=== PATIENT | male | born 1970 | race Caucasian/White ===

== ENCOUNTER 2024-07-02 11:27 | Inpatient (IN) | payer SELFPAY ==
[2024-07-02] VITALS (17 sets, daily range): BP systolic 166–206; BP diastolic 79–100; PULSE 73–88; RESP 11–25; TEMP 36.5; O2SAT 95–99; BMI 29.9
--- NOTE | 2024-07-02 11:36 | EKG_ITS ---
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
--- NOTE | 2024-07-02 11:37 | DI.CT.S_ITS ---
PROCEDURE: CT HEAD/BRAIN WO CON INDICATIONS: left facial droop TECHNIQUE: Noncontrast 4.5 mm thick angled axial sections acquired from the foramen magnum to the vertex, with coronal and sagittal reformats. For radiation dose reduction, the following was used: automated exposure control, adjustment of mA and/or kV according to patient size. COMPARISON: None. FINDINGS: Image quality: Diagnostic. CSF spaces: Basal cisterns are patent. No extra-axial fluid collections. Ventricles are normal in size and shape. Brain: No midline shift. No intracranial masses or hemorrhage. De La Fuente-white matter interface is normal. Skull and face: Calvarium and visualized facial bones are intact, without suspicious lesions. Sinuses: Visualized sinuses and mastoids are clear. IMPRESSION: No CT evidence of acute intracranial pathology. Dictated by: Abhay Pruitt M.D. on 07/02/2024 at 12:13 Approved by: Abhay Pruitt M.D. on 07/02/2024 at 12:13
--- NOTE | 2024-07-02 11:37 | DI.CT.S_ITS ---
PROCEDURE: CT ANGIO HEAD AND NECK INDICATIONS: left facial droop since tuesday TECHNIQUE: After the administration of intravenous contrast, 1 mm thick sections acquired from the aortic arch through the [place] of [place]. 3-dimensional nswpewh-dfgeilomi-kezeemluvs (MIP) and/or volume rendering reformats were acquired of the central intracranial vasculature and neck separately. For radiation dose reduction, the following was used: automated exposure control, adjustment of mA and/or kV according to patient size. COMPARISON: None. FINDINGS: Image quality: Diagnostic. BRAIN: CSF spaces: Ventricles are normal in size and shape. Basal cisterns are patent. No extra-axial fluid collections. Brain: No significant abnormality of the brain can be seen. Skull and face: Calvarium and facial bones appear intact, without suspicious lesions. Orbits appear normal. Sinuses: Sinuses and mastoids are clear. HEAD CT ANGIOGRAPHY: Anterior circulation: Intracranial internal carotid arteries are normal in size and flow. The flow within the paired anterior cerebral arteries is normal and symmetric. The flow within the middle cerebral arteries is normal and symmetric. The anterior communicating artery is seen. No aneurysms are seen. Posterior circulation: Visualized portions of the vertebral arteries demonstrate normal caliber, and join to form a normal appearing basilar artery. Flow within the posterior cerebral arteries is normal and symmetric. No aneurysms are seen. NECK CT ANGIOGRAPHY: Carotid system: The great vessels demonstrate a conventional anatomy as they arise from the aortic arch. The origins of the common carotid arteries appear patent. The common carotid arteries demonstrate normal caliber and courses. The bifurcation regions are both widely patent. The internal carotid arteries demonstrate normal calibers and courses. Posterior circulation: The origins of the vertebral arteries both appear widely patent. The more superior extracranial portions of both vertebral arteries also demonstrate normal courses and calibers. They join to form a normal appearing basilar artery. Soft tissues: Visualized neck soft tissues demonstrate no suspicious abnormalities. Bones: No suspicious bony lesions. Visualized cervical spine appears normally aligned. IMPRESSION: 1. No significant intracranial arterial abnormality is seen. 2. No significant abnormality is seen within the arteries of the neck. Any quantitative measurements of stenosis were performed using NASCET criteria. Dictated by: Abhay Pruitt M.D. on 07/02/2024 at 12:10 Approved by: Abhay Pruitt M.D. on 07/02/2024 at 12:13
--- NOTE | 2024-07-02 11:39 | EKG_ITS ---
[address] [address] Test Date: 2024-07-02 Pat Name: John Garcia Department: Room: 90B Gender: Male Online Program Coordinator: COMFORT : 1970 Requested By: Order Number: [id number] Reading MD: Axel Flannery MD Measurements Intervals [place] Rate: 75 P: 65 [place]: 198 QRS: -22 QRSD: 100 T: 97 QT: 390 QTc: 435 Interpretive Statements Normal sinus rhythm Possible Left atrial enlargement Incomplete right bundle branch block (old) Left ventricular hypertrophy with repolarization abnormality ( R in aVL , [place] product ) Electronically Signed On 07-03-2024 7:29:59 PDT by Axel Flannery MD
[2024-07-02 11:47] LABS: Add Manual Diff / Slide Review NO; Basophils Absolute Auto 100 /uL (0-100); Basophils Percent Auto 0.5 % (0-2); Eosinophils Absolute Auto 0 /uL (0-450); Eosinophils Percent Auto 0.1 % (2-4); Hematocrit 44.9 % (41-53); Hemoglobin 15.2 g/dL (13.5-17.5); Lymphocytes Absolute Auto 1200 /uL (1100-4500); Mean Corpuscular HGB Conc 33.8 % (30-36); Mean Corpuscular Hemoglobin 30.7 PG (26-34); Mean Corpuscular Volume 90.8 fL (80-100); Monocytes Absolute Auto 800 /uL (0-900); Monocytes Percent Auto 5.6 % (3-14); Neutrophils Absolute Auto 11700 /uL (1500-7000); Neutrophils Percent Auto 84.8 % (50-75); Platelet Count 215 X10^3/uL (150-400); Red Blood Cell Count 4.95 X10^6/uL (4.5-5.9); Red Cell Distribution Width 13.3 % (11.6-14.8); White Blood Cell Count 13.7 X10^3/uL (4.5-11.0)
--- NOTE | 2024-07-02 11:56 | ED.NEUROSD ---
HPI - Neuro Symptoms/Deficit General Chief Complaint: Neuro Symptoms/Deficit Stated Complaint: stroke like symptoms Time Seen by Provider: 07/02/24 11:37 History of Present Illness HPI Narrative: Patient is a 53-year-old male who has no medical history does not go to doctors presents today with dizziness nausea vomiting ongoing for the last 2 days. 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 He woke up suddenly felt sweaty threw up a number of times he was able to go back to sleep during the vomiting and woke up extremely dizzy. He now is having difficulty swallowing he feels like the muscles in motor he is to swallow are difficult any also has a hoarse voice. He also reports left facial numbness reports that this feels like he was at the dentist. He also complains of temperature difference between the right and left side. He says that the right side does not feel hot like left side. He has no significant weakness. No chest pain or palpitations. No abdominal pain. On Anticoagulants: No Related Data Allergies Allergy/AdvReac Type Severity Reaction Status Date / Time codeine AdvReac Verified 07/02/24 11:38 lactase [From [employer]] AdvReac Verified 07/02/24 11:38 Review of Systems Hematologic/Lymphatic On Anticoagulants: No Patient History Social History household members: spouse and children Smoking Status: Never smoker Smoking Status: Never smoker alcohol intake frequency: 0-2 drinks per day Substance Use Type: does not use Exam Initial Vital Signs Initial Vital Signs: Vital Signs Pulse Oximetry 99 07/02/24 11:31 GENERAL: Alert pleasant 53-year-old male and in no acute distress. HEENT: Head atraumatic,EOMI, pupils reactive, no nystagmus face symmetric, moist mucous membranes CARDIOVASCULAR: Regular rate and rhythm without murmurs, rubs or gallops. RESPIRATORY: Breath sounds equal bilaterally, no wheezes rales or rhonchi. ABDOMEN: Soft, nontender. Normoactive bowel sounds all 4 quadrants. No guarding or rebound. EXTREMITIES: Normal range of motion, no clubbing or edema. Neurovascularly intact NEUROLOGICAL: Alert and oriented x4.Normal gait and speech. Cranial nerves II through XII grossly intact. Difficult fgzjmu-pk-rdie with left hand good lgza-je-qqlf, strength equal bilaterally, no dysarthria or aphasia, sensation to lift face decreased compared to right face, no visual changes, no facial droop SKIN: Warm, dry, no laceration, no petechiae, no rashes or lesions. Scores NIH Stroke Scale Level of Conciousness: Alert, keenly responsive Ask month/age: Answers both questions correctly. Open/close eyes, close hand: Performs both tasks correctly Best gaze horizontal: Normal Visual rodriguez: No visual loss Facial palsy: Normal symetrical movement Left arm drift: No drift for full 10 sec Right arm drift: No drift for full 10 sec Left leg drift: No drift for full 5 sec Right leg drift: No drift for full 5 sec Limb ataxia: Present in one limb Sensory on face/arms/legs: Mild to moderate sensory loss, can tell touch Best language: No aphasia, normal Dysarthria: Normal Extinction or inattention: No abnormality Total NIH Stroke scale score: 2 Course Orders Ordered: ED Orders 07/02/24 11:36 Complete Blood Count AUTO DIFF Stat Comprehensive Metabolic Panel Stat Lipase Stat Troponin & CK Cardiac Panel Stat EKG-12 Lead Stat 07/02/24 11:37 CT angio head and neck Stat CT head/brain wo con Stat 07/02/24 11:39 EKG-12 Lead Stat 07/02/24 12:38 MR head/brain wo con Stat Acetaminophen (Acetaminophen 650 Mg Supp) 650 mg [place] Q6HR PRN PRN Reason: Fever Heparin Sodium (Porcine) (Heparin 5,000 Unit/Ml Vial) 5,000 unit SUBCUT BID SOPHIA Dextrose/Sodium Chloride (Dextrose 5%-0.45% Ns) 1,000 mls @ 100 mls/hr IV CONT SOPHIA Naloxone HCl (Naloxone 0.4 Mg/Ml Vial) 0.2 mg IV Q2MIN PRN PRN Reason: Opiate Reversal Ondansetron HCl (Ondansetron 4 Mg/2 Ml Inj) 4 mg IV Q8HR PRN PRN Reason: Nausea And Vomiting Discontinued Medications Aspirin (Aspirin 300 Mg Supp) 300 mg [place] NOW ONE Stop: 07/02/24 15:48 Last Admin: 07/02/24 17:30 Dose: 300 mg Documented By: SPF Sodium Chloride (Normal Saline 0.9%) 500 mls @ 1,000 mls/hr IV BOLUS ONE Stop: 07/02/24 12:36 Last Infusion: 07/02/24 13:15 Dose: Infused Documented By: Admin: 07/02/24 12:16 Dose: 1,000 mls/hr Documented By: CARL Meclizine HCl (Meclizine Hcl 12.5 Mg Tablet) 25 mg PO NOW ONE Stop: 07/02/24 12:08 Last Admin: 07/02/24 12:46 Dose: Not Given Documented By: DEDE Ondansetron HCl (Ondansetron 4 Mg/2 Ml Inj) 4 mg IV NOW ONE Stop: 07/02/24 12:08 Last Admin: 07/02/24 12:16 Dose: 4 mg Documented By: CARL Vital Signs Vital signs: Vital Signs - 8 hr 07/02/24 11:31 07/02/24 11:32 07/02/24 11:32 Temperature Pulse Rate 88 Respiratory Rate Blood Pressure 188/88 H Pulse Oximetry 99 99 Oxygen Delivery Method 07/02/24 11:39 07/02/24 11:55 07/02/24 11:55 Temperature 97.7 F Pulse Rate 82 79 Respiratory Rate 16 21 Blood Pressure 188/88 H 170/85 H Pulse Oximetry 98 97 Oxygen Delivery Method Room Air 07/02/24 12:00 07/02/24 12:00 07/02/24 12:30 Temperature Pulse Rate 88 Respiratory Rate 22 Blood Pressure 171/90 H 178/81 H Pulse Oximetry 98 Oxygen Delivery Method 07/02/24 12:30 07/02/24 13:00 07/02/24 13:00 Temperature Pulse Rate 77 79 Respiratory Rate 18 13 Blood Pressure 174/83 H Pulse Oximetry 96 97 Oxygen Delivery Method Room Air Room Air 07/02/24 13:30 07/02/24 13:30 07/02/24 14:32 Temperature Pulse Rate 77 Respiratory Rate 12 Blood Pressure 166/79 H 206/100 H Pulse Oximetry 98 Oxygen Delivery Method 07/02/24 14:32 07/02/24 14:42 07/02/24 14:42 Temperature Pulse Rate 75 80 Respiratory Rate 25 H 14 Blood Pressure 188/96 H Pulse Oximetry 95 97 Oxygen Delivery Method 07/02/24 15:00 07/02/24 15:00 07/02/24 15:30 Temperature Pulse Rate 77 73 Respiratory Rate 11 L 11 L Blood Pressure 199/99 H Pulse Oximetry 98 98 Oxygen Delivery Method Room Air 07/02/24 15:30 10/07/24 16:00 07/02/24 16:00 Temperature Pulse Rate 74 Respiratory Rate Blood Pressure 187/96 H 192/100 H Pulse Oximetry 98 Oxygen Delivery Method 07/02/24 16:30 07/02/24 16:30 07/02/24 17:00 Temperature Pulse Rate 74 Respiratory Rate 12 Blood Pressure 192/96 H 184/92 H Pulse Oximetry 97 Oxygen Delivery Method 07/02/24 17:00 Temperature Pulse Rate 75 Respiratory Rate 13 Blood Pressure Pulse Oximetry 97 Oxygen Delivery Method Room Air MDM - Neuro Symptoms/Deficit Lab Data 07/02/24 11:36 07/02/24 11:36 Labs: Lab Results 07/02/24 Range/Units 11:36 WBC 13.7 H (4.5-11.0) X10^3/uL RBC 4.95 (4.5-5.9) X10^6/uL Hgb 15.2 (13.5-17.5) g/dL Hct 44.9 (41-53) % MCV 90.8 (80-100) fL MCH 30.7 (26-34) PG MCHC 33.8 (30-36) % RDW 13.3 (11.6-14.8) % Plt Count 215 (150-400) X10^3/uL Neut % (Auto) 84.8 H (50-75) % Lymph % (Auto) 9.0 L (25-40) % [place] % (Auto) 5.6 (3-14) % Eos % (Auto) 0.1 L (2-4) % Baso % (Auto) 0.5 (0-2) % Neut # (Auto) 51251 H (0662-7494) /uL Lymph # (Auto) 1200 (2657-3779) /uL [place] # (Auto) 800 (0-900) /uL Eos # (Auto) 0 (0-450) /uL Baso # (Auto) 100 (0-100) /uL Sodium 138 (137-145) mmol/L Potassium 3.6 (3.4-5.1) mmol/L Chloride 101 (98-107) mmol/L Carbon Dioxide 28 (22-32) mmol/L BUN 18 (9-20) mg/dL Creatinine 1.06 (0.66-1.25) mg/dL Estimated GFR > 60 (>60) mL/min BUN/Creatinine Ratio 17.0 (6-22) Glucose 138 H (70-100) mg/dL Calcium 9.5 (8.4-10.2) mg/dL Total Bilirubin 0.9 (0.2-1.3) mg/dL AST 36 (17-59) IU/L ALT 32 (<50) IU/L Alkaline Phosphatase 121 (38-126) U/L Total Creatine Kinase 164 (55-170) U/L Troponin I < 0.012 (0.01-0.034) ng/mL Total Protein 7.7 (6.3-8.2) g/dL Albumin 4.6 (3.5-5.0) g/dL Globulin 3.1 (1.7-4.1) g/dL Albumin/Globulin Ratio 1.5 (1.0-2.8) Lipase 53 (23-300) U/L Imaging Data CT scan - head: Radiologist's Impression: PROCEDURE: CT HEAD/BRAIN WO CON INDICATIONS: left facial droop TECHNIQUE: Noncontrast 4.5 mm thick angled axial sections acquired from the foramen magnum to the vertex, with coronal and sagittal reformats. For radiation dose reduction, the following was used: automated exposure control, adjustment of mA and/or kV according to patient size. COMPARISON: None. FINDINGS: Image quality: Diagnostic. CSF spaces: Basal cisterns are patent. No extra-axial fluid collections. Ventricles are normal in size and shape. Brain: No midline shift. No intracranial masses or hemorrhage. [place]-white matter interface is normal. Skull and face: Calvarium and visualized facial bones are intact, without suspicious lesions. Sinuses: Visualized sinuses and mastoids are clear. IMPRESSION: No CT evidence of acute intracranial pathology. Dictated by: Abhay Pruitt M.D. on 07/02/2024 at 12:13 CTA - brain/neck: Radiologist's Impression: ADDENDUMThis report includes an Addendum and supersedes previous reports for this exam. PROCEDURE: CT ANGIO HEAD AND NECK INDICATIONS: left facial droop since tuesday TECHNIQUE: After the administration of intravenous contrast, 1 mm thick sections acquired from the aortic arch through the [place] of [place]. 3-dimensional worisoo-baqdedpnn-krrlcjcyds (MIP) and/or volume rendering reformats were acquired of the central intracranial vasculature and neck separately. For radiation dose reduction, the following was used: automated exposure control, adjustment of mA and/or kV according to patient size. COMPARISON: None. FINDINGS: Image quality: Diagnostic. BRAIN: CSF spaces: Ventricles are normal in size and shape. Basal cisterns are patent. No extra-axial fluid collections. Brain: No significant abnormality of the brain can be seen. Skull and face: Calvarium and facial bones appear intact, without suspicious lesions. Orbits appear normal. Sinuses: Sinuses and mastoids are clear. HEAD CT ANGIOGRAPHY: Anterior circulation: Intracranial internal carotid arteries are normal in size and flow. The flow within the paired anterior cerebral arteries is normal and symmetric. The flow within the middle cerebral arteries is normal and symmetric. The anterior communicating artery is seen. No aneurysms are seen. Posterior circulation: Visualized portions of the vertebral arteries demonstrate normal caliber, and join to form a normal appearing basilar artery. Flow within the posterior cerebral arteries is normal and symmetric. No aneurysms are seen. NECK CT ANGIOGRAPHY: Carotid system: The great vessels demonstrate a conventional anatomy as they arise from the aortic arch. The origins of the common carotid arteries appear patent. The common carotid arteries demonstrate normal caliber and courses. The bifurcation regions are both widely patent. The internal carotid arteries demonstrate normal calibers and courses. Posterior circulation: The origins of the vertebral arteries both appear widely patent. The more superior extracranial portions of both vertebral arteries also demonstrate normal courses and calibers. They join to form a normal appearing basilar artery. Soft tissues: Visualized neck soft tissues demonstrate no suspicious abnormalities. Bones: No suspicious bony lesions. Visualized cervical spine appears normally aligned. IMPRESSION: 1. No significant intracranial arterial abnormality is seen. 2. No significant abnormality is seen within the arteries of the neck. Any quantitative measurements of stenosis were performed using NASCET criteria. Dictated by: Abhay Pruitt M.D. on 07/02/2024 at 12:10 Approved by: Abhay Pruitt M.D. on 07/02/2024 at 12:13 ADDENDUM: Upon further evaluation, distal intracranial portion of left vertebral artery is not well visualized with likely retrograde filling of most left vertebral artery from the right side and basilar artery. Finding is concerning for occlusion involving distal intracranial portion of left vertebral artery best seen on series 3, image 146 and series 2, image 138. Dictated by: Abhay Pruitt M.D. on 07/02/2024 at 15:31 MR Brain: Radiologist's Impression: PROCEDURE: MR HEAD/BRAIN WO CON INDICATIONS: facial numbness vomiting difficulty swallowing TECHNIQUE: Noncontrast axial T1 spin echo, axial T2 fast spin echo, sagittal and axial FLAIR, coronal T2 fast spin echo, axial gradient echo, axial diffusion and ADC through the brain. COMPARISON: [facility], CT, CT ANGIO HEAD AND NECK, 07/02/2024, 11:45. FINDINGS: Image quality: Excellent. CSF Spaces: Basal cisterns are patent. No extra-axial fluid collections. Ventricles are normal in size and shape. Brain: No intracranial masses or hemorrhage. [place]/white matter interface is normal. Brainstem appears normal. Diffusion-weighted images demonstrate focal area of restricted diffusion involving left posterior lateral marquita suggestive of acute pointing infarction. No other area of restricted diffusion is seen. No chronic ischemic insults. Normal intravascular flow voids are present. Skull and face: Calvarium has normal marrow signal. Orbits appear normal. Sinuses: Retention cysts are seen in bilateral maxillary sinuses. IMPRESSION: 1. Small acute infarction involving left posterior marquita. 2. No evidence of acute intracranial bleed, midline shift or mass effect. 3. Retention cysts are seen in bilateral maxillary sinuses. Dictated by: Abhay Pruitt M.D. on 07/02/2024 at 15:26 Approved by: Abhay Pruitt M.D. on 07/02/2024 at 15:29 ECG Data Attestation: I personally reviewed and interpreted this ECG as follows: Prior ECG tracings: not available for review Interpretation: Normal sinus rhythm rate 84 [place] interval 74 QRS 104 QTC 406 incomplete right bundle-branch block no priors to compare [facility] Narrative Medical decision making narrative: [facility] CC: Nausea vomiting dizziness left facial numbness Complicating co-morbidities: Does not go to providers Medical records reviewed: None Differential considered: Vertigo posterior stroke CVA Exam documented above, pertinent findings include: Numbness left face ataxia with left arm decreased temperature sensation on the right side NIH stroke scale 2 Lab Test results independently reviewed as above. Pertinent findings: WBC is 13.7 hemoglobin 15.2 hematocrit 44.9 platelets 215 Independently reviewed EKG as above no ischemia Imaging studies independently reviewed: CT head and CT angio do not show any intracranial hemorrhage or large vessel occlusion MR brain shows small acute infarct of the left posterior marquita Consultations: [id number] Dr. Miller request neurology consult but then will happily accept Dr. Cerna Neurology reviewed imaging, recommends loading plavix 300mg then 75mg for 21 days, then daily asa 81mg forever Need statin bp control,Bubble study and outpatient 30day heart monitor Treatments: Aspirin rectally Re-evaluations: Patient really having difficulty swallowing did not pass his swallow test. I do not feel comfortable giving Plavix 300 mg orally Has intermittently been dizzy been feeling okay no longer feeling nauseous Discussion: Patient 53-year-old male presents today with dizziness left facial numbness on examined have some left and ataxia also complains of some temperature differences between right and left. He is found to have a small left posterior marquita CVA. Most concerning is some difficulty swallowing unclear if this is related to stroke versus other but presumed stroke. Neurology has been consulted recommendations are as above Discussion with patient and in regards to admission needing further studies further medications and physical therapy. Recommended admission to the hospital which they agreed to Discharge Plan Departure Patient Disposition: Admitted As Inpatient Clinical Impression: Cerebrovascular accident Admit Date/Time: 07/02/24 17:05 Admit Provider: Yao Miller
[2024-07-02 12:04] LABS: Alanine Aminotransferase 32 IU/L (<50); Albumin 4.6 g/dL (3.5-5.0); Albumin Globulin Ratio 1.5 (1.0-2.8); Alkaline Phosphatase 121 U/L (38-126); Aspartate Aminotransferase 36 IU/L (17-59); Bilirubin Total 0.9 mg/dL (0.2-1.3); Blood Urea Nitrogen 18 mg/dL (9-20); Calcium 9.5 mg/dL (8.4-10.2); Carbon Dioxide 28 mmol/L (22-32); Chloride 101 mmol/L (98-107); Creatine Kinase 164 U/L (55-170); Estimated Glomerular Filt Rate > 60 mL/min (>60); Globulin 3.1 g/dL (1.7-4.1); Glucose 138 mg/dL (70-100); HEMOLYSIS < 15 (0-50); Lipase 53 U/L (23-300); Potassium 3.6 mmol/L (3.4-5.1); Sodium 138 mmol/L (137-145); Total Protein 7.7 g/dL (6.3-8.2)
[2024-07-02 12:16] LABS: Troponin I < 0.012 ng/mL (0.01-0.034)
[2024-07-02] MEDS: SODIUM CHLORIDE 0.9% 500 ML 1000 ML IV (12:16)
[2024-07-02] MEDS: ONDANSETRON 4 MG/2 ML INJ IV (12:16)
--- NOTE | 2024-07-02 12:20 | PC.NURSE ---
Pt failed swallow eval having difficulty swallowing a teaspoon of water. Pt attempted to swallow twice and began to hiccup. Provider notified. Pt placed NPO and PO medications cancelled.
--- NOTE | 2024-07-02 12:38 | DI.MRI.S_ITS ---
PROCEDURE: MR HEAD/BRAIN WO CON INDICATIONS: facial numbness vomiting difficulty swallowing TECHNIQUE: Noncontrast axial T1 spin echo, axial T2 fast spin echo, sagittal and axial FLAIR, coronal T2 fast spin echo, axial gradient echo, axial diffusion and ADC through the brain. COMPARISON: [facility], CT, CT ANGIO HEAD AND NECK, 07/02/2024, 11:45. FINDINGS: Image quality: Excellent. CSF Spaces: Basal cisterns are patent. No extra-axial fluid collections. Ventricles are normal in size and shape. Brain: No intracranial masses or hemorrhage. [place]/white matter interface is normal. Brainstem appears normal. Diffusion-weighted images demonstrate focal area of restricted diffusion involving left posterior lateral marquita suggestive of acute pointing infarction. No other area of restricted diffusion is seen. No chronic ischemic insults. Normal intravascular flow voids are present. Skull and face: Calvarium has normal marrow signal. Orbits appear normal. Sinuses: Retention cysts are seen in bilateral maxillary sinuses. IMPRESSION: 1. Small acute infarction involving left posterior marquita. 2. No evidence of acute intracranial bleed, midline shift or mass effect. 3. Retention cysts are seen in bilateral maxillary sinuses. Dictated by: Abhay Pruitt M.D. on 07/02/2024 at 15:26 Approved by: Abhay Pruitt M.D. on 07/02/2024 at 15:29
--- NOTE | 2024-07-02 17:10 | P.HP_ITS ---
History of Present Illness History of Present Illness Date Patient Seen: 07/02/24 Chief complaint: stroke like symptoms Narrative: Patient was a 53-year-old male with no past history. He was not really sought medical attention over the years in his had some isolated possible high blood pressure readings. He denies a history of stroke or hyperlipidemia although this is not been checked. Does not smoke and does not have a strong family history of stroke. He was hiking and camping on [facility] on Tuesday when he woke up he felt abnormal. He would nausea and some dizziness. He then noticed a droopy left eye, gravelly speech, numbness of his left face and the inside of his left mouth as well as intermittent episodes of vertigo which made it hard to walk. Ultimately he needed assistance getting out of the area with the help of law enforcement. He ultimately presented to the hospital today about 32 hours after his initial symptoms upon awakening Tuesday. He was found here to have abnormal speech and admitted to some difficulty swallowing. He denied any weakness of arms or legs but notes that he was numb on the left side of his face but not his arms or legs. He also took a shower and notes that his cold and hot sensation are absent on the right entire side of his body. Imaging revealed a marquita infarct in the left. There was no hemorrhage. Denies history of TIA, or other neurologic issues. [facility] Social History household members: spouse and children Smoking Status: Never smoker Meds Home Medications and Allergies Allergies Allergy/AdvReac Type Severity Reaction Status Date / Time codeine AdvReac Verified 07/02/24 11:38 lactase [From Dairy Aid] AdvReac Verified 07/02/24 11:38 Review of Systems Review of Systems Narrative: All else reviewed and otherwise unremarkable except as noted in the history and physical. Exam Vital Signs (past 8 hours): - 07/02/24 11:31 07/02/24 11:32 07/02/24 11:32 Temperature Pulse Rate 88 Respiratory Rate Blood Pressure 188/88 H Pulse Oximetry 99 99 Oxygen Delivery Method 07/02/24 11:39 07/02/24 11:55 07/02/24 11:55 Temperature 97.7 F Pulse Rate 82 79 Respiratory Rate 16 21 Blood Pressure 188/88 H 170/85 H Pulse Oximetry 98 97 Oxygen Delivery Method Room Air 07/02/24 12:00 07/02/24 12:00 07/02/24 12:30 Temperature Pulse Rate 88 Respiratory Rate 22 Blood Pressure 171/90 H 178/81 H Pulse Oximetry 98 Oxygen Delivery Method 07/02/24 12:30 07/02/24 13:00 07/02/24 13:00 Temperature Pulse Rate 77 79 Respiratory Rate 18 13 Blood Pressure 174/83 H Pulse Oximetry 96 97 Oxygen Delivery Method Room Air Room Air 07/02/24 13:30 07/02/24 13:30 07/02/24 14:32 Temperature Pulse Rate 77 Respiratory Rate 12 Blood Pressure 166/79 H 206/100 H Pulse Oximetry 98 Oxygen Delivery Method 07/02/24 14:32 07/02/24 14:42 07/02/24 14:42 Temperature Pulse Rate 75 80 Respiratory Rate 25 H 14 Blood Pressure 188/96 H Pulse Oximetry 95 97 Oxygen Delivery Method 07/02/24 15:00 07/02/24 15:00 07/02/24 15:30 Temperature Pulse Rate 77 73 Respiratory Rate 11 L 11 L Blood Pressure 199/99 H Pulse Oximetry 98 98 Oxygen Delivery Method Room Air 07/02/24 15:30 07/02/24 16:00 07/02/24 16:00 Temperature Pulse Rate 74 Respiratory Rate Blood Pressure 187/96 H 192/100 H Pulse Oximetry 98 Oxygen Delivery Method Oxygen Delivery Method Room Air Narrative Exam Narrative: NAD, alert and oriented, fluent speech, calm. Normocephalic skull, EOMI, anicteric sclera, symmetric pupils. Oropharynx unremarkable, no droop. Neck supple, midline trachea, no adenopathy. Lungs clear, normal rate and effort. Heart regular, no murmur gallop or rub. Abdomen is soft, non distended and non tender. Extremities are free of edema. Skin is free of rash or lesions. Joints are not swollen or deformed. Judgment appears to be normal. Neuro: Cranial nerves are intact other than he does have a mild weakness as have his left upper lid and decreased sensation to touch on the left side of his entire face. Motor strength is normal in arms and legs. He does have gradually speech. He also has normal EOMI with no diplopia. He does have slightly slow rapid alternating movement maneuvers in the left arm and heel to sanchez on the left leg. His cerebellum was unremarkable on imaging. Objective ECG Impression: Normal sinus rhythm Possible Left atrial enlargement Incomplete right bundle branch block Minimal voltage criteria for LVH, may be normal variant ( [place]ma product ) Nonspecific ST and T wave abnormality NO PRIOR TRACING Imaging Multiple studies:: Radiologist's impression: Brain MRI: 1. Small acute infarction involving left posterior marquita. 2. No evidence of acute intracranial bleed, midline shift or mass effect. 3. Retention cysts are seen in bilateral maxillary sinuses. Head/Neck CTA: 1. No significant intracranial arterial abnormality is seen. 2. No significant abnormality is seen within the arteries of the neck. Brain CT: No CT evidence of acute intracranial pathology. Labs 07/02/24 11:36 07/02/24 11:36 Labs: Laboratory Results - last 24 hr 07/02/24 11:36 WBC 13.7 H RBC 4.95 Hgb 15.2 Hct 44.9 MCV 90.8 MCH 30.7 MCHC 33.8 RDW 13.3 Plt Count 215 Neut % (Auto) 84.8 H Lymph % (Auto) 9.0 L [place] % (Auto) 5.6 Eos % (Auto) 0.1 L Baso % (Auto) 0.5 Neut # (Auto) 32437 H Lymph # (Auto) 1200 [place] # (Auto) 800 Eos # (Auto) 0 Baso # (Auto) 100 Sodium 138 Potassium 3.6 Chloride 101 Carbon Dioxide 28 BUN 18 Creatinine 1.06 Estimated GFR > 60 BUN/Creatinine Ratio 17.0 Glucose 138 H Calcium 9.5 Total Bilirubin 0.9 AST 36 ALT 32 Alkaline Phosphatase 121 Total Creatine Kinase 164 Troponin I < 0.012 Total Protein 7.7 Albumin 4.6 Globulin 3.1 Albumin/Globulin Ratio 1.5 Lipase 53 Assessment & Plan Assessment & Plan narrative: 1. Acute marquita CVA, present on admission and active. 2. Vertigo and abnormal rapid alternating movements on exam, present on admission and active. 3. Possible chronic untreated hypertension, we will be evaluated. Plan: -dual antiplatelet therapy. He was given a Plavix load in the ED. -high dose statin -speech evaluation, PT, and OT evaluations. -swallow evaluation, he has been drinking fluids and blenderized shakes without choking for the last day and a half. -permissive hypertension. Inpatient status, anticipate 2 midnight hospital stay. Full resuscitation. TRACIE is 07/04. Time-Based Coding :: [TOTAL MINUTES] spent with patient and on the chart (including review of chart, obtaining history, exam, reviewing outside data, placing orders, documenting exam and treatment plan, and counseling patient) on [DATE]. Quality MIPS - Admit I confirm the patient?s Advance Care Plan is present, Code status is documented, Surrogate decision maker is in patient?s record [If Yes, STOP here]: Yes MIPS - Meds 'Current medications' to include all prescriptions, [id number] products, herbals, cannabis/cannabidiol products, and vitamin/mineral/dietary (nutritional) supplements. I have utilized all available resources to obtain, update, or review the patient?s current medications. [If Yes, STOP here]: Yes
[2024-07-02] MEDS: ASPIRIN 300 MG SUPP PR (17:30)
--- NOTE | 2024-07-02 18:18 | CM.DANOTE ---
ED TREE FELLER OPERATOR Assessment Note: Pt is a 53yo male, resident of [place], is admitted for CVA. Pt lives in a house with his family (spouse, two teenage children, dog and cat) in [place]. Patient does not have a primary care provider and does not have active medical insurance. Reviewed chart and team rounds for pt's medical status and initial discharge needs. ED TREE FELLER OPERATOR met w/patient at bedside; introduced self and role. Patient was found in bed, alert and oriented, cooperative with assessment. Present in the room is patient's , Qiana. Pt confirmed living situation and good support in family. Pt expressed preference in returning home and some anxiety around medical bills due to patient's lack of medical insurance. ED TREE FELLER OPERATOR provided patient with Medicaid application and reviewed process with patient and . Patient appreciative of application to review and complete. Plan: Patient to be admitted for continued observation and treatment of CVA symptoms. CM team will follow closely for coordination of discharge plans. JEFFERY De Leon Discharge Planning/Care Management CM Discharge Assessment Start: 07/02/24 18:16 Freq: Status: Active Protocol: Document 07/02/24 18:16 MW (Rec: 07/02/24 18:18 MW [id number]) Discharge Planning Assessment Assigned Hardware Engineering Manager JEANNE Akers DPOA/Assigned Designee Name Qiana Garcia, Spouse Contact Information [phone] Advance Directives? No History Provided By Patient,Family Member,Medical Record Expected Length of Stay 2 Has Patient been admitted in last 30 No days? Prior Living Arrangements House Household Members spouse,children Comment Children - 14yo and 17yo Type of transporation used prior to Drives own vehicle admit Independent with ADL's Yes Is patient alert and oriented? Yes Caregiver for Another Yes: Children, with support of Comment Pending amubulation status and medical work up, preference to return home with family. Please Provide Date Initial DC 07/02/24 Assessment Was Performed Next Review Type Continued Stay Review
[2024-07-02] MEDS: DEXTROSE 5%-0.45% NS 1,000 ML 100 ML IV (19:00)
[2024-07-02] MEDS: HEPARIN 5,000 UNIT/ML VIAL 5000 UNIT SUBCUT (21:16)
[2024-07-03] VITALS: BP 157/93; PULSE 75; RESP 16; TEMP 36.1; O2SAT 97
[2024-07-03] MEDS: DEXTROSE 5%-0.45% NS 1,000 ML 100 ML IV (03:08)
[2024-07-03 04:00] VITALS: BP 158/92; PULSE 60; RESP 16; TEMP 35.8; O2SAT 99
[2024-07-03 06:25] LABS: Add Manual Diff / Slide Review NO; Basophils Absolute Auto 100 /uL (0-100); Basophils Percent Auto 0.7 % (0-2); Eosinophils Absolute Auto 100 /uL (0-450); Eosinophils Percent Auto 0.7 % (2-4); Hematocrit 41.5 % (41-53); Hemoglobin 14.2 g/dL (13.5-17.5); Lymphocytes Absolute Auto 2100 /uL (1100-4500); Mean Corpuscular HGB Conc 34.2 % (30-36); Mean Corpuscular Hemoglobin 30.8 PG (26-34); Mean Corpuscular Volume 90.3 fL (80-100); Monocytes Absolute Auto 700 /uL (0-900); Monocytes Percent Auto 7.7 % (3-14); Neutrophils Absolute Auto 6500 /uL (1500-7000); Neutrophils Percent Auto 68.9 % (50-75); Platelet Count 181 X10^3/uL (150-400); Red Cell Distribution Width 13.4 % (11.6-14.8); White Blood Cell Count 9.4 X10^3/uL (4.5-11.0)
[2024-07-03 06:39] LABS: BUN Creatinine Ratio 17.7 (6-22); Blood Urea Nitrogen 14 mg/dL (9-20); Calcium 8.8 mg/dL (8.4-10.2); Carbon Dioxide 25 mmol/L (22-32); Chloride 107 mmol/L (98-107); Estimated Glomerular Filt Rate > 60 mL/min (>60); Glucose 130 mg/dL (70-100); HEMOLYSIS < 15 (0-50); Potassium 3.4 mmol/L (3.4-5.1); Sodium 139 mmol/L (137-145)
--- NOTE | 2024-07-03 06:52 | PC.NURSE ---
Pt stated when I watch TV I have double vision NIH-2 Pt states that it was better throughout the day yesterday, but it now is the same as it was when i first came to the hospital Will continue to monitor, partner at bedside.
--- NOTE | 2024-07-03 07:33 | PM.PN.1 ---
Subjective Subjective Interval history: 53 year old male admitted with subacute stroke. S: He was slightly better today with less numbness in his left side of his mouth and slightly clear speech. No motor weakness of arms and legs. No headache. He was drinking liquids without choking last night. Exam Vital Signs (past 8 hours): - 07/03/24 00:00 07/03/24 04:00 Temperature 96.9 F L 96.5 F L Pulse Rate 75 60 Respiratory Rate 16 16 Blood Pressure 157/93 H 158/92 H Pulse Oximetry 97 99 Oxygen Flow Rate 0 0 Oxygen Delivery Method Room Air Oxygen Flow Rate 0 Narrative Exam Narrative: NAD, alert and oriented. Fluent speech. Lungs are clear, normal rate and effort. Heart is regular, no murmur gallop or rub. Abdomen is soft, non distended. Extremities are free of edema. Improved left-sided rapid alternating movements and heel to sanchez. Mild ptosis of left eye, EOMI. Left side of face numb over the cheek and chin. Gravelly speech. Objective ECG Impression: Impression: Normal sinus rhythm Possible Left atrial enlargement Incomplete right bundle branch block Minimal voltage criteria for LVH, may be normal variant ( [place] product ) Nonspecific ST and T wave abnormality NO PRIOR TRACING Imaging Multiple studies:: Radiologist's impression: Brain MRI: 1. Small acute infarction involving left posterior marquita. 2. No evidence of acute intracranial bleed, midline shift or mass effect. 3. Retention cysts are seen in bilateral maxillary sinuses. Head/Neck CTA: 1. No significant intracranial arterial abnormality is seen. 2. No significant abnormality is seen within the arteries of the neck. Brain CT: No CT evidence of acute intracranial pathology. Labs 07/03/24 06:01 07/03/24 06:01 Labs: Laboratory Results - last 24 hr 07/02/24 07/03/24 11:36 06:01 WBC 13.7 H 9.4 RBC 4.95 4.60 Hgb 15.2 14.2 Hct 44.9 41.5 MCV 90.8 90.3 MCH 30.7 30.8 MCHC 33.8 34.2 RDW 13.3 13.4 Plt Count 215 181 Neut % (Auto) 84.8 H 68.9 Lymph % (Auto) 9.0 L 22.0 L [place] % (Auto) 5.6 7.7 Eos % (Auto) 0.1 L 0.7 L Baso % (Auto) 0.5 0.7 Neut # (Auto) 00967 H 6500 Lymph # (Auto) 1200 2100 [place] # (Auto) 800 700 Eos # (Auto) 0 100 Baso # (Auto) 100 100 Sodium 138 139 Potassium 3.6 3.4 Chloride 101 107 Carbon Dioxide 28 25 BUN 18 14 Creatinine 1.06 0.79 Estimated GFR > 60 > 60 BUN/Creatinine Ratio 17.0 17.7 Glucose 138 H 130 H Calcium 9.5 8.8 Total Bilirubin 0.9 AST 36 ALT 32 Alkaline Phosphatase 121 Total Creatine Kinase 164 Troponin I < 0.012 Total Protein 7.7 Albumin 4.6 Globulin 3.1 Albumin/Globulin Ratio 1.5 Lipase 53 PFSH Social History household members: spouse and children Smoking Status: Never smoker alcohol intake: current Assessment & Plan Assessment & Plan narrative: 1. Acute marquita CVA, present on admission and active. 2. Vertigo and abnormal rapid alternating movements on exam, present on admission and active. 3. Possible chronic untreated hypertension, we will be evaluated. Plan: -dual antiplatelet therapy. He was given a Plavix load in the ED. -high dose statin -speech evaluation, PT, and OT evaluations. -swallow evaluation -permissive hypertension. Inpatient status, anticipate 2 midnight hospital stay. Full resuscitation. TRACIE is 07/04. Time-Based Coding :: [TOTAL MINUTES] spent with patient and on the chart (including review of chart, obtaining history, exam, reviewing outside data, placing orders, documenting exam and treatment plan, and counseling patient) on [DATE]. Quality VTE Deep Vein Thrombosis/Pulmonary Embolism Present on Admission: No
[2024-07-03 08:00] VITALS: BP 167/88; PULSE 74; RESP 14; TEMP 36.2; O2SAT 96
[2024-07-03] MEDS: HEPARIN 5,000 UNIT/ML VIAL 5000 UNIT SUBCUT ×2 (08:53→21:22)
--- NOTE | 2024-07-03 11:05 | PT.IIE ---
Physical Therapy Inpatient Evaluation/Re-Eval M1 PT/OT-IP Prior Functional Status Start: 07/03/24 12:25 Freq: NEEDED Status: Active Protocol: Document 07/03/24 11:05 AB (Rec: 07/03/24 12:41 [id number]) Medical Review Prior Functional Status Medical History Reviewed Yes Communication able to make needs known; voice: hoarse Mobility and Gait pt stated that he was independent with all mobilities and ambulation without AD Social History Household Members spouse,children Living Arrangements House Number of Floors (Floors) Two Floors Number of Stairs To Enter/Railing? 2 steps to enter without rails : L side post 7steps +landing +7 steps L side rail to get to bedroom level Home Environment High Toilet,Walk in Shower Home Equipment Front Wheel Walker Employment Status Unemployed Additional Social History Comment pt has an adjustable bed M2 PT-IP Current Condition Start: 07/03/24 12:25 Freq: NEEDED Status: Active Protocol: Document 07/03/24 11:05 AB (Rec: 07/03/24 12:41 [id number]) Physical Therapy Current Condition Current Condition Evaluation Date 07/03/24 Treatment Diagnosis L marquita CVA; difficulty in walking Onset Date 07/02/24 M3 PT-IP Subjective Start: 07/03/24 12:25 Freq: NEEDED Status: Active Protocol: Document 07/03/24 11:05 AB (Rec: 07/03/24 12:41 [id number]) Subjective Physical Therapy Visit Type Type Initial Evaluation Visit Start Time 11:05 Visit Stop Time 11:30 Number of VETERINARY INSPECTOR Visits 0 Physical Therapy Visit Comments Patient Comments agreeable to do PT Therapy Pain Assessment Pain Present Pain Present Denied Pain M4 PT-IP Mobility and Gait Start: 07/03/24 12:25 Freq: NEEDED Status: Active Protocol: Document 07/03/24 11:05 AB (Rec: 07/03/24 12:41 [id number]) PT-Bed Mobility Assessment Supine to Sit Supine to Sit Standby Assistance PT-Transfer Assessment Sit to and From Stand Sit to and from Stand Moderate Assistance,1 Person Assistance,Use of Upper Extremities Equipment Transfer Assistive Device Gait Belt,Front Wheeled Walker Orthotic/Prosthetic Devices or Brace: No Transfers Transfer Destination Chair Transfer Technique ambulated Transfer Ability Level of Assist Moderate Assistance,Maximum Assistance,1 Person Assistance ,Use of Upper Extremities Comments Mobility Comments pt supine in bed. spouse in room. obtained PLOF and home set up from pt and spouse. pt with c/o L facial numbness, double vision, vertigo, dizziness/nausea( intermittently). pt completed supine to sit SBA. HOB elevated. able to sit on EOB CGA. completed sit to stand mod A and cues. pt requiring mod A for standing balance using FWW for support. cued for midline orientation. pt ambulation to the chair using FWW mod to max A and cues. presents with ataxic gait needing mod to max A for balance. pt sat on the chair and positioned. call light within reach. pt up on the chair. ELECTRIC CAR OPERATOR to eval after PT. informed pt and spouse regarding acute rehab recommendation at this time. Gait Assessment Gait Gait Assistance Required: Moderate Assistance,Maximum Assistance Distance (Feet) 12 Able to Maintain Weight Bearing Status Yes During Gait Assistive Devices Assistive Device Gait Belt,Front Wheeled Walker Orthotic/Prosthetic Devices or Brace: No Gait Deviations General Gait Pattern Ataxic,Decreased Stride Length ,Narrow Based Gait,Step-to Gait Factors Limiting Gait Function Factors Limiting Gait Function Decreased Activity Tolerance, Decreased Strength,Difficulty Following Directions, Incoordination,Poor Balance, Poor Safety Awareness PT-Balance Assessment Sitting Balance and Reactions Static Sitting Balance Ability Good Dynamic Sitting Balance Ability Fair Standing Balance and Reactions Static Standing Balance Ability Poor Dynamic Standing Balance Ability Poor Device Used FWW M5 PT-IP Objective Assessments Start: 07/03/24 12:25 Freq: NEEDED Status: Active Protocol: Document 07/03/24 11:05 AB (Rec: 07/03/24 12:41 AB [id number]) Orientation Orientation/Cognition Level of Alertness Alert Orientation Name,Place,Situation Language Function Ability No Deficits Noted Safety Awareness Decreased Safety Awareness Memory Description No Deficits Noted Gross Range of Motion Lower Extremity ROM Assessment Within Functional Limits Strength Lower Extremity Strength Assessment Within Functional Limits Coordination Assessment Gross Coordination Gross Coordination WNL Sensation Assessment Sensation Sensation Description Numbness Comments Sensation Comments L sided facila nubmness Muscle Tone Muscle Tone WNL Yes M6 PT-IP Treatment Start: 07/03/24 12:25 Freq: NEEDED Status: Active Protocol: Document 07/03/24 11:05 AB (Rec: 07/03/24 12:41 AB [id number]) Physical Therapy Treatment Education Education Provided Safety M7 PT-IP Assessment and Plan Start: 07/03/24 12:25 Freq: NEEDED Status: Active Protocol: Document 07/03/24 11:05 AB (Rec: 07/03/24 12:41 AB [id number]) PT Summary Assessment and Plan Potential Rehabilitation Potential Fair Status of Condition at Evaluation Evolving Summary Impairments Pain,ROM,Strength,Balance, Coordination,Sensation,Tone, Cognition,Bed Mobility, Transfers,Gait,Activity Tolerance Assessment Summary Pt is a 53 y/o M who is admitted for L amrquita CVA. pt with current c/o double vision , vertigo affecting mobility. pt requiring mod to max A and max cues with mobility using FWW. pt with decrease sense of midline body position and presents with ataxic gait using fWW requiring mod to max A and max cues. pt will benefit from acute rehab to improve overall mobility. will continue to assess. Goals Bed Mobility Goal Independent Transfer Goal Minimal Assistance,Front Wheeled Walker Gait Goal Minimal Assistance,Front Wheel Walker Gait Distance 50 Other Goals improve transfers, ambulation using FWW ~ 150 ft SBA up/down 2 steps L post SBA up/down 15 steps L rail ascending SBA Days to Meet Goals 10 Frequency of Treatment Frequency Of Treatment Once a Day Treatment Plan Physical Therapy Treatment Plan Bed Mobility Training,Transfer Training,Gait Training, Therapeutic Exercise,Balance Retraining,Discharge Planning, Hot or Cold Pack,Neuromuscular Re-ed,Coordination Retraining ,Manual Therapy Precautions Other Precautions falls Recommendations To Nursing Amount of Assist Needed 1 Person Assist Discharge Recommendations PT Discharge Recommendations Acute Rehab Transportation Needs at Discharge Private Vehicle,Wheelchair/ Cabulance
[2024-07-03 12:00] VITALS: BP 145/88; PULSE 88; RESP 20; TEMP 37.1; O2SAT 97
[2024-07-03 14:38] LABS: Vitamin B12 538 pg/mL (239-931)
--- NOTE | 2024-07-03 14:44 | ST.IPCSEOM ---
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 Yao Miller Reason for Referral Difficulty swallowing during nursing screen Setting Assessment Location Acute Care Visit Type Note Type Initial evaluation Next Note Type Next Note Type Treatment Note Patient Information Identification Type Name,Wristband History Pt is a 53-year-old male who presented to ED with dizziness , nausea, vomiting, difficulty swallowing, hoarse voice, and left facial numbness. 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 No PMHx on file. Per H&P on 07/02, he denies a history of stroke or hyperlipidemia although this is not been checked. Does not smoke and does not have a strong family history of stroke. He was hiking and camping on [facility] on Tuesday when he woke up he felt abnormal. He would nausea and some dizziness. He then noticed a droopy left eye, gravelly speech, numbness of his left face and the inside of his left mouth as well as intermittent episodes of vertigo which made it hard to walk. Ultimately he needed assistance getting out of the area with the help of law enforcement. He ultimately presented to the hospital today about 32 hours after his initial symptoms upon awakening Tuesday. He was found here to have abnormal speech and admitted to some difficulty swallowing. He denied any weakness of arms or legs but notes that he was numb on the left side of his face but not his arms or legs. He also took a shower and notes that his cold and hot sensation are absent on the right entire side of his body. Imaging revealed a marquita infarct in the left. There was no hemorrhage. Denies history of TIA, or other neurologic issues. Pt was seen for assessment and treatment of swallowing given indications of dysphagia. Subjective Observations Pt was seen sitting upright in armchair with spouse, Qiana, at bedside. He was able to answer case history questions without difficulty and was alert and oriented x4. No indications of aphasia or dysarthria at this time. Vocal quality was mildly hoarse, though pt reported this has been improving. Reported by Patient/Caregiver Pain/Discomfort No Other Symptoms Difficulty swallowing liquids, Difficulty swallowing pills, Difficulty swallowing solids, Food gets stuck Comment Pt reported that solids and liquids have been getting stuck in his throat since CVA symptoms begun. He reports this has improved over the past day and he is able to compensate by swallowing several times to clear potential residue. He denied s /sx of aspiration. Pt reported increased phlegm production and incresed productive throat clearing with and without PO intake. Pt also reported decreased facial sensation, which has now resolved, and decreased sensation and mild numbness in his throat when swallowing, more so on the right side. Current Diet NPO Baseline Feeding Method Independent in self-feeding The IDDSI Framework Protocol: IDDSI.1 Objective Assessment Mental Status Alert,Responsive,Cooperative Oral Integrity WFL Dentition Within normal limits Lip Function Within normal limits Observation of Lips at Rest Symmetrical Pucker Within normal limits Lip Retraction Within normal limits Alternating Pucker/Lip Retraction Within normal limits Tongue Function Mild impairment Observations of Tongue at Rest Deviates to the right Tongue Protrusion Deviates to the right Tongue Retraction Within normal limits Tongue Lateralization Deviates to the right Jaw Function Within normal limits Observation of Jaw at Rest Within normal limits Jaw Opening Within normal limits Jaw Closing Within normal limits Jaw Lateralization Within normal limits Jaw Protrusion Within normal limits Jaw Retraction Within normal limits Hard/Soft Palate Function Within normal limits Observations of Hard/Soft Palate Within normal limits Nasality Within normal limits Respiratory Sufficiency Within normal limits Comment OME significant for mild left sided lingual weakness and numbess, resulting in tongue deviating to the right. Food and Liquid Trials Position During Assessment Upright (90 degrees) Liquids Trialed Ice chips,Thin (IDDSI 0) Solid Trials Purred (IDDSI 4),Soft & Bite- sized (IDDSI 6),Regular (IDDSI 7) Administration Type Cup single sip,Cup consecutive sips,Straw,Self-feeding Oral Impairment Within normal limits Oral Phase Comments Timely initiation of pharyngeal swallow. Multiple swallows to clear. No anterior bolus loss. No overt s/sx premature bolus loss to the pharynx. No oral residue or pocketing observed. Pharyngeal Impairment Mildly impaired Pharyngeal Phase Comments Inconsistent delayed throat clearing after swallows of soft and bite-sized and regular textures, with pt reporting increased phlegm. Multiple swallows to clear residue. No coughing or overt s/sx aspiration though silent aspiration cannot be ruled out without an instrumental assessment. Fatigue/Endurance Endurance WNL The IDDSI Framework Protocol: IDDSI.1 Findings Swallowing Function Pharyngeal phase dysphagia Severity of Swallow Impairment Mildly impaired Contributing Factors to Swallow Reduced oral strength/ Impairment coordination/sensation, Excessive pharyngeal residue Prognosis Good Based on Cognitive status,Family support,Age,Comorbidities, Duration of symptoms/severity Comment Pt presents with indications of mild pharyngeal dysphagia. Aspiration risk is judged to be low given good oral care and overall health status. No overt s/sx of aspiration observed with all PO trials. Recommend soft and bite-sized diet and thin liquids with adherence to aspiration precautions below. Will follow up to assess tolerance of current diet texture and potential advancement to easy to chew or regular texture diet. Recommendations Instrumental Assessment No Swallowing Treatment Yes Frequency 5x/week Recommended Solids Soft & Bite-sized (IDDSI 6) Recommended Liquids Thin (IDDSI 0) Safety Precautions/Swallowing Remain upright (90 degrees) Recommendations during all oral intake,Upright position at least 30 minutes after meals,Small bites and sips when eating,Slow rate; swallow between bites,Multiple swallows,Alternate liquids and solids Medication Recommendations Whole in Carrier,One at a Time Discharge Recommendations Home,Home with Home Health Education Patient/Caregiver Education Patient expressed understanding of evaluation, Patient expressed agreement with goals & treatment plans Goals Short-term Goals 1. Pt will utilize safe swallowing strategies 90% of the time with minimal cueing in order to consume safest and least restrictive diet. 2. Pt will consume regular textures with no overt s/sx of aspiration or sensation of pharyngeal residue in 100% of opportunities in order to meet primary nutrition and hydration needs. 3. Pt will consume thin liquids via sequential sips with no overt s/sx of aspiration or sensation of pharyngeal residue in 100% of opportunities in order to meet primary nutrition and hydration needs. Long-term Goals Pt will consume a diet of regular solids and thin liquids without s/sx aspiration or sensation of pharyngeal residue in order to safely consume least restrictive diet and return to PLOF.
[2024-07-03] MEDS: CYANOCOBALAMIN 1,000 MCG/ML VIAL 1000 MCG SUBCUT (14:59)
--- NOTE | 2024-07-03 15:20 | OT.IP.EVAL ---
Occupational Therapy Inpatient Evaluation/Re-Eval M1 PT/OT-IP Prior Functional Status Start: 07/03/24 12:25 Freq: NEEDED Status: Active Protocol: Document 07/03/24 15:32 [facility] (Rec: 07/03/24 15:54 [facility] [id number]) Medical Review Prior Functional Status Medical History Reviewed Yes Communication able to make needs known; voice: hoarse Mobility and Gait pt stated that he was independent with all mobilities and ambulation without AD Activities of Daily Living and IADL's Pt completely independent with no AD. Social History Household Members spouse,children Living Arrangements House Number of Floors (Floors) Two Floors Number of Stairs To Enter/Railing? 2 steps to enter without rails : L side post 7steps +landing +7 steps L side rail to get to bedroom level Home Environment High Toilet,Walk in Shower Home Equipment Front Wheel Walker Employment Status Unemployed Additional Social History Comment pt has an adjustable bed M2 OT-IP Current Condition Start: 07/03/24 15:32 Freq: Status: Active Protocol: Document 07/03/24 15:32 [facility] (Rec: 07/03/24 15:54 [facility] [id number]) Occupational Therapy Current Condition Current Condition Evaluation Date 07/03/24 Treatment Diagnosis Left Shweta CVA Diagnosis Onset Date 07/02/24 M3 OT- IP Subjective and Pain Start: 07/03/24 15:32 Freq: Status: Active Protocol: Document 07/03/24 15:32 [facility] (Rec: 07/03/24 15:54 [facility] [id number]) OT- Subjective Occupational Therapy Visit Type Type Initial Evaluation Visit Start Time 14:40 Visit Stop Time 15:25 Occupational Therapy Visit Comments Patient Comments Pt agreed to get up. Patient/Caregiver Goals TO go home. OT Pain Assessment Pain When Pain Assessed At Rest Pain Present Pain Present Denied Pain M4 OT- IP ADL's Start: 07/03/24 15:32 Freq: Status: Active Protocol: Document 07/03/24 15:32 [facility] (Rec: 07/03/24 15:54 [facility] [id number]) OT [id number] Comments OT Self-Feeding Comments Not at meal time. Pt on soft and bite size with thin liquids. OT ADL-Grooming Comments OT Grooming Comments NOt performed. OT ADL-Oral Care Comments Oral Care Comments Not performed. OT ADL-Dressing General Eval Lower Body Dressing Ability Contact Guard Assistance Comments OT Dressing Comments Pt able to do dressing needs while seated and able to half squat in order to get his pants up over his hips. Suggested to dress his LLE first and take out last. OT ADL-Toileting Comments OT Toileting Comments Not performed. Suggested pt take a urinal home and get a BSC. OT ADL-Bathing Comments OT Bathing Comments Pt will benefit from a shower chair, HHPS, and benefit from assist. M5 OT- IP IADL's Start: 07/03/24:32 Freq: Status: Active Protocol: Document 07/03/24 15:32 [facility] (Rec: 07/03/24 15:54 [facility] [id number]) OT-Instrumental Activities of Daily Living Deficits IADL Deficits Identified Deficits Home Safety Awareness Awareness of Need for Assistance at Home Good Awareness Ability to Problem Solve Emergency Able to Problem Solve Situations Home Safety Comments Pt has good awareness for assist at this and will benefit from supervision and assist for IADL needs. Money Management Money Management Comments Best to have at least supervision. Meal Preparation Meal Preparation Comments Pt will benefit from assist. Dog Behaviorist Dog Behaviorist Comments Pt will benefit from assist. Driving Driving Concerns Identified Regarding Safety Driving Comments Pt realizes that he will not drive at this time. M6 OT- IP Functional Cognition Start: 07/03/24 15:32 Freq: Status: Active Protocol: Document 07/03/24 15:32 [facility] (Rec: 07/03/24 15:54 [facility] [id number]) Cognitive Factors Limiting Selfcare Function Cognitive Ability Level of Alertness Alert Patient Orientation Name,Age,Birthday,Month,Date, Year,Day of Week,Place, Situation Attention Span Ability Capable of Focused Attention, Capable of Sustained Attention Cognitive Comments Cognitive Assessment Comments Pt able to follow directions for ADL and mobility needs. To assess higher level cognitive needs when pt's vision clears more. OT- Vision and Hearing OT- Hearing Assessment OT- Hearing Assessment WFL OT- Vision Assessment Visual Acuity WFL Visual Attentiveness WFL Occular Pursuits Impaired Horizontal Visual Convergence WFL Visual Reese WFL Diplopia Present Vision Assessment Comments Slight lag with left eye for occular pursuits. Able to tape the left lateral side of his glasses to try to get the pt to use the left eye more to focus medially. Pt states tape appears to help some. M7 OT- IP Mobility and Balance Start: 07/03/24 15:32 Freq: Status: Active Protocol: Document 07/03/24 15:32 [facility] (Rec: 07/03/24 15:54 [facility] [id number]) OT- Bed Mobility Assessment Supine to Sit Supine to Sit Assist Standby Assistance Sit to Supine Sit to Supine Assist Standby Assistance Scooting Scooting to Edge of Bed Standby Assistance OT-Transfer Assessment Sit to and From Stand Sit to and from Stand Minimal Assistance Transfers Transfer Ability Moderate Assistance Technique Transfer Destination Bed Devices Transfer Assistive Devices Gait Belt,Front Wheeled Walker Comments Mobility Comments Pt able to get in and out of the bed on his own with increased time. Pt tends to slightly lean to the left and has awareness to fix his midline when cued. MILI to stand to the FWW with focus to tighten his LLE as at times LLE tends to hyperextend. Pt able to take a few steps in the room with MODA X 1 with FWW and heavy use of his hands on the FWW. OT- Balance Assessment Sitting Balance and Reactions Static Sitting Balance Ability Good Dynamic Sitting Balance Ability Good Standing Balance and Reactions Static Standing Balance Ability Fair Dynamic Standing Balance Ability Poor M8 OT- IP Objective Assessments Start: 07/03/24 15:32 Freq: Status: Active Protocol: Document 07/03/24 15:32 [facility] (Rec: 07/03/24 15:54 [facility] [id number]) OT Gross Range of Motion Upper Extremity Range of Motion Assessment Within Functional Limits OT Strength Upper Extremity Strength Assessment Within Functional Limits Comments Strength Comments WFL but LUE slightly weaker than RUE. OT- Coordination Assessment Upper Extremity Finger to Nose Test Left UE Impaired Finger Tapping Test Left UE Impaired Comments Coordination Comments Increased time and slightly off for left hand. Right hand 29 seconds and Left hand 37 seconds for 9 hole peg test which is under 10th percentile fro his age R>>L. Pt is mildly ataxic for left hand movements. Pt however able to tie his shoes while seated with no issues. OT Sensation Assessment Comments Summary Comments Intact for light touch. Pt states right arm decreased for hot/cold at this time. Edema Edema Comments Left hand slightly swollen. M9 OT- IP Assessment and Plan Start: 07/03/24 15:32 Freq: Status: Active Protocol: Document 07/03/24 15:32 [facility] (Rec: 07/03/24 15:54 [facility] [id number]) OT Summary Assessment and Plan Potential Rehabilitation Potential Excellent Analytic Complexity at Evaluation Moderate Summary OT Impairments Balance,Coordination,Sensation ,Functional Mobility,Grooming, Dressing,Toileting,Bathing, Toilet Transfers,Shower Transfers,Activity Tolerance Progress Towards Goals Slow Progress due to Medical Issues Assessment Summary Pt MOD complexity and main barriers are steps, decreased strength, balance, weakness with LLE> LUE. Pt having to use the FWW at this time and will need assist at home for some ADL and most IADL needs. Pt would greatly benefit from acute rehab however pt does not have insurance andn therefore to be looking at going home with assist. Able to go over activities for his LUE. RUE to increased his speed, efficiency, and accuracy of movements. Goals Dressing Goal Independent Toileting Goal Independent Bathing Goal Independent Toilet Transfer Goal Independent Shower Transfer Goal Independent Days to Meet Goals 15 Frequency of Treatment Other frequency 5x/week Treatment Plan OT Treatment Plan ADL Training,Functional Cognition Training,Functional Mobility,Vision Retraining, Patient/Family Education, Discharge Planning Other Treatment Recommendations and Next Reassess vision, [place] Making Treatment Focus B, shower? Discharge Recommendations OT Discharge Recommendations Acute Rehab Other Discharge Recommendations Pt states has no insurance and therefore looking to go home with family to assist. Home Equipment Needs BSC, WC, FWW, shower chair, HHSP, ramp? Transportation Needs at Discharge Private Vehicle,Wheelchair/ Cabulance
[2024-07-03] MEDS: MECLIZINE HCL 12.5 MG TABLET 25 MG PO (15:35)
[2024-07-03 16:00] VITALS: BP 168/93; PULSE 75; RESP 16; TEMP 36.1; O2SAT 96
--- NOTE | 2024-07-03 16:28 | CM.DPNOTE ---
DCP Cont Met w/patient and sp to review discharge plan. Therapies are recommending acute inpatient rehab. This is not currently available to patient as he is uninsured. Patient/sp aware and plan to medically insure patient upon open enrollment Jul 27. According to Magda Patel in admitting, household income is over income for [place], [employer] asim and information about the health exchange has been offered/discussed with patient and spouse. Patient is eager to return home. Plan: Home w/family anticipated via family to transport. No addtl needs from this CM team anticipated. ASHLYN
[2024-07-03 20:00] VITALS: BP 161/98; PULSE 77; RESP 17; TEMP 36.4; O2SAT 96
[2024-07-04] VITALS: BP 174/94; PULSE 71; RESP 16; TEMP 35.7; O2SAT 97
[2024-07-04 04:00] VITALS: BP 163/96; PULSE 70; RESP 17; TEMP 36.2; O2SAT 97
[2024-07-04 06:27] LABS: Add Manual Diff / Slide Review NO; Basophils Absolute Auto 100 /uL (0-100); Basophils Percent Auto 0.7 % (0-2); Eosinophils Absolute Auto 200 /uL (0-450); Eosinophils Percent Auto 1.8 % (2-4); Hematocrit 41.1 % (41-53); Lymphocytes Absolute Auto 2400 /uL (1100-4500); Lymphocytes Percent Auto 21.8 % (25-40); Mean Corpuscular Hemoglobin 30.7 PG (26-34); Mean Corpuscular Volume 90.3 fL (80-100); Monocytes Absolute Auto 700 /uL (0-900); Monocytes Percent Auto 6.4 % (3-14); Neutrophils Absolute Auto 7700 /uL (1500-7000); Neutrophils Percent Auto 69.3 % (50-75); Platelet Count 173 X10^3/uL (150-400); Red Blood Cell Count 4.55 X10^6/uL (4.5-5.9); Red Cell Distribution Width 13.3 % (11.6-14.8)
[2024-07-04 07:07] LABS: BUN Creatinine Ratio 17.3 (6-22); Blood Urea Nitrogen 13 mg/dL (9-20); Calcium 8.7 mg/dL (8.4-10.2); Carbon Dioxide 26 mmol/L (22-32); Chloride 106 mmol/L (98-107); Estimated Glomerular Filt Rate > 60 mL/min (>60); Glucose 112 mg/dL (70-100); HEMOLYSIS < 15 (0-50); Potassium 3.5 mmol/L (3.4-5.1); Sodium 137 mmol/L (137-145)
[2024-07-04 08:00] VITALS: BP 174/99; PULSE 79; RESP 16; TEMP 36.2; O2SAT 97
--- NOTE | 2024-07-04 09:35 | PM.DS.1 ---
History of Present Illness History of Present Illness Chief complaint: stroke like symptoms Narrative: Patient was a 53-year-old male with no past history. He was not really sought medical attention over the years in his had some isolated possible high blood pressure readings. He denies a history of stroke or hyperlipidemia although this is not been checked. Does not smoke and does not have a strong family history of stroke. He was hiking and camping on [facility] on Tuesday when he woke up he felt abnormal. He would nausea and some dizziness. He then noticed a droopy left eye, gravelly speech, numbness of his left face and the inside of his left mouth as well as intermittent episodes of vertigo which made it hard to walk. Ultimately he needed assistance getting out of the area with the help of law enforcement. He ultimately presented to the hospital today about 32 hours after his initial symptoms upon awakening Tuesday. He was found here to have abnormal speech and admitted to some difficulty swallowing. He denied any weakness of arms or legs but notes that he was numb on the left side of his face but not his arms or legs. He also took a shower and notes that his cold and hot sensation are absent on the right entire side of his body. Imaging revealed a marquita infarct in the left. There was no hemorrhage. Denies history of TIA, or other neurologic issues. Discharge Providers Provider Date of admission: 07/02/24 17:05 Discharge Date: 07/04/24 Consults: 07/02/24 17:08 Consult to Discharge Planning Routine Comment: Consult to Occupational Therapy Evaluate & Treat Comment: Physician Instructions: Evaluate and treat Consult to Physical Therapy Evaluate & Treat Comment: Physician Instructions: Evaluate and Treat Consult to Speech Therapy Evaluate & Treat Comment: Physician Instructions: Evaluate and treat 07/02/24 18:00 Consult to CMM INSPECTOR - Route Delivery Clerk Routine Comment: Route Delivery Clerk Consult needed for:: Other reason (Comment) Comment: Pt has no insurance, pt and spouse concerned about stay with finances. Discharge provider: Yao Miller MD Summary Hospital Course Discharge Diagnosis: 1. Acute marquita CVA, present on admission and active. 2. Vertigo and abnormal rapid alternating movements on exam, present on admission and active. 3. Possible chronic untreated hypertension, we will be evaluated. Hospital Course: The patient presented with stroke symptoms that have been ongoing for about 24 hours. Imaging indicated a left pontine stroke. The patient underwent evaluations with rehabilitation and was felt to be stable for discharge home. He does have intermittent vertigo, mild diplopia, left face numbness, as well as the right side of his body not feeling heat or cold. He also did have dysphagia and dysarthria which improved dramatically while he was in the hospital. The patient was advised to take dual antiplatelet therapy for 21 days and then aspirin thereafter as well as indefinite high dose statin. He does not have a primary care doctor, I am trying to arrange follow up with Dr. Madrid at [facility], near his home. His case was discussed at length with [facility] neurology at the time of his emergency department evaluation. Status at Discharge Cognitive/behavioral status at discharge: at baseline, oriented Functional status at discharge: independent ambulation Overall status at discharge: patient is progressing back to baseline Time Spent with Patient Time spent: Greater than 30 minutes Exam Vital Signs (past 8 hours): - 07/04/24 04:00 07/04/24 08:00 Temperature 97.2 F L 97.1 F L Pulse Rate 70 79 Respiratory Rate 17 16 Blood Pressure 163/96 H 174/99 H Pulse Oximetry 97 97 Oxygen Flow Rate 0 0 Oxygen Delivery Method Room Air Oxygen Flow Rate 0 Narrative Exam Narrative: NAD, alert and oriented. Fluent speech. Lungs are clear, normal rate and effort. Heart is regular, no murmur gallop or rub. Abdomen is soft, non distended. Extremities are free of edema. Improved left-sided rapid alternating movements and heel to sanchez. Mild ptosis of left eye, EOMI. Left side of face numb over the cheek and chin. Gravelly speech. Objective ECG Impression: Normal sinus rhythm Possible Left atrial enlargement Incomplete right bundle branch block Minimal voltage criteria for LVH, may be normal variant ( Leo product ) Nonspecific ST and T wave abnormality NO PRIOR TRACING Imaging Multiple studies:: Radiologist's impression: Brain MRI: 1. Small acute infarction involving left posterior marquita. 2. No evidence of acute intracranial bleed, midline shift or mass effect. 3. Retention cysts are seen in bilateral maxillary sinuses. Head/Neck CTA: 1. No significant intracranial arterial abnormality is seen. 2. No significant abnormality is seen within the arteries of the neck. Brain CT: No CT evidence of acute intracranial pathology. Labs 07/04/24 06:00 07/04/24 06:00 Labs: Laboratory Results - last 24 hr 07/03/24 07/04/24 13:22 06:00 WBC 11.0 RBC 4.55 Hgb 14.0 Hct 41.1 MCV 90.3 MCH 30.7 MCHC 34.0 RDW 13.3 Plt Count 173 Neut % (Auto) 69.3 Lymph % (Auto) 21.8 L Meagher % (Auto) 6.4 Eos % (Auto) 1.8 L Baso % (Auto) 0.7 Neut # (Auto) 7700 H Lymph # (Auto) 2400 Meagher # (Auto) 700 Eos # (Auto) 200 Baso # (Auto) 100 Sodium 137 Potassium 3.5 Chloride 106 Carbon Dioxide 26 BUN 13 Creatinine 0.75 Estimated GFR > 60 BUN/Creatinine Ratio 17.3 Glucose 112 H Calcium 8.7 Vitamin B12 538 PFSH Social History household members: spouse and children Smoking Status: Never smoker alcohol intake: current Discharge Assessment & Plan Assessment and Plan Assessment: 1. Acute marquita CVA, present on admission and active. 2. Vertigo and abnormal rapid alternating movements on exam, present on admission and active. 3. Possible chronic untreated hypertension, we will be evaluated. Plan of Treatment: Discharge home, advised to take dual antiplatelet therapy for 21 days, then aspirin monotherapy and indefinite high dose statin. Also advised to start lisinopril at 5 mg daily for likely chronic untreated hypertension. We will help arrange follow up at [facility], close to his home. Plan to try to get him in to be seen within 6 days. Discharge Plan Discharge Plan Patient Disposition: Home Provider Discharge Comment: Stable for discharge home, we will use walker for the next week. We will pursue outpatient physical therapy and new PCP at [facility]. Discharge orders & Medications Prescriptions: New aspirin 81 mg capsule 81 mg PO DAILY Qty: 30 5RF clopidogrel [Plavix] 75 mg tablet 75 mg PO DAILY Qty: 21 0RF atorvastatin 40 mg tablet 40 mg PO BEDTIME Qty: 30 4RF lisinopril 5 mg tablet 5 mg PO DAILY Qty: 30 5RF Diet/Activity/Treatments Diet: Diet as Tolerated Activity: As tolerated, use walker for next 1 week. Visit Report/Discharge Packet Instructions: Atorvastatin, Clopidogrel Stand Alone Forms: Patient Portal/API, Stroke Signs & Symptoms Quality VTE Deep Vein Thrombosis/Pulmonary Embolism Present on Admission: No
--- NOTE | 2024-07-04 10:42 | ST.IPDYTX ---
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 Breakfast tray was at bedside. Pt reported no difficulty with soft and bite- sized texture meals, expressing that he has been utilizing slow rate and small bites and sips consistently. He reported he occasionally needs to utilize a second swallow and liquid wash to clear potential pharyngeal residue. He denied s/sx of aspiration with intake and reported no difficulty with intake of pills. Dysphonia severity decreased from yesterday, with pt reporting his voice is returning to baseline. Treatment Liquids Trialed Thin (IDDSI 0) Solids Trialed Soft & Bite-sized (IDDSI 6), Regular (IDDSI 7) Administration Type Cup Single Sip,Cup Consecutive Sips,Straw,Self-Feeding Treatment Activities Assessment of swallowing function with trial of regular texture. The IDDSI Framework Protocol: IDDSI.1 Assessment Patient Response to Treatment Excellent Rehab Potential Excellent Assessment of Improvement Chart reviewed. Spoke with RN prior to session and RN reported no overt concerns. Pt and family denied any increase in swallowing difficulty or s/sx of aspiration. Pt reported increased lingual sensation as well as sensation in his throat. He also reported decreased feeling of pharyngeal residue, with decreased need for second swallow and liquid wash from yesterday. Trialed regular texture given overall improvement in swallowing function. Oral phase was WNL, timely, no oral residue or pocketing observed. Pharyngeal phase appeared timely and coordinated with pt denying sensation of pharyngeal residue. No signs/symptoms of aspiration/penetration observed. Currently, pt does not present with indications of oropharyngeal dysphagia. Recommend pt advance to baseline diet of regular textures (self-selecting softer foods as needed) and thin liquids with adherence to aspiration precautions below. Will follow up for one additional session to re- assess swallowing function with advanced texture. Pt and spouse expressed understanding of recommendations and agreeable to diet advancement. RN notified of diet advancement as well as recommendation for medications with thin liquid wash. Recommendations Recommendations Upgrade Diet Order Liquids Order Thin (IDDSI 0) Diet Order Regular (IDDSI 7) Medication Recommendations As Tolerated,Whole Aspiration Precautions Recommended Precautions Upright at 90 Degrees, Alternate Liquids/Solids,Small Bites/Sips Treatment Plan Placement Recommendation after Discharge Home Appropriate for Continued Therapy Yes Therapy Recommendations Plan to assess swallowing function with advanced texture for one additional session and discharge if good tolerance. Following discharge , recommend pt monitor intermittent sensation of pharyngeal residue, and if does not resolve following discharge, recommend he request DIRT BIKE MECHANIC referral and possible MBSS from PCP. Pt and spouse agreeable. Referrals/Other Recommended Referrals Primary Care Physician
[2024-07-04 10:44] VITALS: BP 174/99; PULSE 79
[2024-07-04] MEDS: lisinopriL 5 MG TABLET PO (10:44)
[2024-07-04] MEDS: CLOPIDOGREL 75 MG TABLET PO (10:44)
[2024-07-04] MEDS: ASPIRIN EC 81 MG TABLET PO (10:44)
[2024-07-04] MEDS: ATORVASTATIN 20 MG TABLET PO (10:44)
[2024-07-04 12:00] VITALS: BP 135/86; PULSE 75; RESP 16; TEMP 36.1; O2SAT 98
--- NOTE | 2024-07-04 12:00 | PT.IPTN ---
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 Onset Date 07/02/24 M3 PT-IP Subjective Start: 07/03/24 12:25 Freq: NEEDED Status: Discharge Protocol: Document 07/04/24 12:00 AB (Rec: 07/04/24 15:08 AB [id number]) Subjective Physical Therapy Visit Type Type Treatment Note Visit Start Time 12:00 Visit Stop Time 12:45 Number of KNIFE CUTTER Visits 0 M4 PT-IP Mobility and Gait Start: 07/03/24 12:25 Freq: NEEDED Status: Discharge Protocol: Document 07/04/24 12:00 AB (Rec: 07/04/24 15:08 AB [id number]) PT-Transfer Assessment Sit to and From Stand Sit to and from Stand Moderate Assistance,1 Person Assistance,Use of Upper Extremities Equipment Transfer Assistive Device Gait Belt,Front Wheeled Walker Orthotic/Prosthetic Devices or Brace: No Transfers Transfer Destination Chair Comments Mobility Comments pt sitting on the chair and spouse in room. pt planning to go home today. pt unable to go to rehab due to insurance issue. caregiver training conducted. spouse was able to put safety belt on pt. assisted pt with sit to stand mod A and cues. instructed on how to assist and cue pt. pt ambulated in room ~ 30 ft using FWW. pt with increase LLE ER with resulting lateral trunk lean. cued pt on how to correct and activate L quads. pt sat back on the chair. informed pt and spouse on increase LLE positioning for balance and safety. pt and spouse understood. pt ambulated from the chair to the w/c using FWW with spouse assisting mod A and able to position LLE with only occasional cues required. assisted pt to the stairs. educated pt and spouse on how to do stairs. pt completed up/ down platform step : first attempt CITY CLERK requiring max A x 1-2 and max cues. 2nd attempt using CITY CLERK + SPC and continued to required max A and max cues and increase unsteadiness and lateral trunk lean to the L with descent. spouse stated that there are 2 friends who will assist them today to get into the house. informed them to do 2 CITY CLERK for safety and agreed. pt completed up/down steps holding on to L rail with B hands mod A and cues and spouse was able to assist. assisted pt back to the room. pt and spouse without further concerns. Gait Assessment Gait Gait Assistance Required: Moderate Assistance,Maximum Assistance,1 Person Assist Distance (Feet) 30 Able to Maintain Weight Bearing Status Yes During Gait Assistive Devices Assistive Device Gait Belt,Front Wheeled Walker Orthotic/Prosthetic Devices or Brace: No Gait Deviations General Gait Pattern Antalgic,Ataxic,Decreased Stride Length,Narrow Based Gait Factors Limiting Gait Function Factors Limiting Gait Function Decreased Strength, Incoordination,Poor Balance, Poor Safety Awareness Stair Climbing Assessment Evaluation Level of Assist On Stairs Moderate Assistance,Maximal Assistance,1 Person Assistance ,2 Person Assistance Devices Stair Climbing Assistive Devices None,Straight Cane,Left Railing Technique/Endurance Stair Climbing Direction Ascend and Descend Stair Climbing Technique Step to Step Number of Steps Climbed 3 Stair Climbing Set # Repetitions (reps) 1 Comments Stair Climbing Comments pls refer to mobility section for details M5 PT-IP Objective Assessments Start: 07/03/24 12:25 Freq: NEEDED Status: Discharge Protocol: Document 07/03/24 11:05 AB (Rec: 07/03/24 12:41 AB [id number]) Orientation Orientation/Cognition Level of Alertness Alert Orientation Name,Place,Situation Language Function Ability No Deficits Noted Safety Awareness Decreased Safety Awareness Memory Description No Deficits Noted Gross Range of Motion Lower Extremity ROM Assessment Within Functional Limits Strength Lower Extremity Strength Assessment Within Functional Limits Coordination Assessment Gross Coordination Gross Coordination WNL Sensation Assessment Sensation Sensation Description Numbness Comments Sensation Comments L sided facila nubmness Muscle Tone Muscle Tone WNL Yes M6 PT-IP Treatment Start: 07/03/24 12:25 Freq: NEEDED Status: Discharge Protocol: Document 07/04/24 12:00 AB (Rec: 07/04/24 15:09 [id number]) Physical Therapy Treatment Education Education Provided Safety M7 PT-IP Assessment and Plan Start: 07/03/24 12:25 Freq: NEEDED Status: Discharge Protocol: Document 07/04/24 12:00 AB (Rec: 07/04/24 15:08 [id number]) PT Summary Assessment and Plan Potential Rehabilitation Potential Fair Summary Impairments Pain,Strength,Balance, Coordination,Sensation,Tone, Cognition,Bed Mobility, Transfers,Gait,Activity Tolerance Assessment Summary pt requiring mod A to max A for ambulation using FWW. spouse was able to assist pt. pt plans to go home and spouse to assist him. pt unable to go to acute rehab due to insurance problem. spouse stated that they can get insurance by nov 1. informed pt and spouse to go for PT and agreed. Goals Bed Mobility Goal Independent Transfer Goal Minimal Assistance,Front Wheeled Walker Gait Goal Minimal Assistance,Front Wheel Walker Gait Distance 50 Other Goals improve transfers, ambulation using FWW ~ 150 ft SBA up/down 2 steps L post SBA up/down 15 steps L rail ascending SBA Days to Meet Goals 10 Frequency of Treatment Frequency Of Treatment Once a Day Treatment Plan Physical Therapy Treatment Plan Bed Mobility Training,Transfer Training,Gait Training, Therapeutic Exercise,Balance Retraining,Discharge Planning, Hot or Cold Pack,Neuromuscular Re-ed,Coordination Retraining ,Manual Therapy Precautions Other Precautions falls Recommendations To Nursing Amount of Assist Needed 1 Person Assist Discharge Recommendations PT Discharge Recommendations Acute Rehab Transportation Needs at Discharge Private Vehicle,Wheelchair/ Cabulance
--- NOTE | 2024-07-04 12:11 | CM.DPNOTE ---
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 Per hospitalist in morning rounds, pt to dc home today with family support. Hospitalist plans to assist pt in arranging f/u with new PCP. no CM needs likely. Per RN, no obvious CM needs at this time. Per previous CM notes, pt household income over [employer] asim, [employer] asim already provided and discussed with pt. P: home today with family support. CM team will continue to follow as needed. No additional CM needs identified at this time. JEANNE Villarreal
--- NOTE | 2024-07-04 12:45 | OT.IP.TRT ---
Occupational Therapy Treatment Note M2 OT-IP Current Condition Start: 07/03/24 15:32 Freq: Status: Active Protocol: Document 07/03/24 15:32 [facility] (Rec: 07/03/24 15:54 [facility] [id number]) Occupational Therapy Current Condition Current Condition Evaluation Date 07/03/24 Treatment Diagnosis Left Shweta CVA Diagnosis Onset Date 07/02/24 M3 OT- IP Subjective and Pain Start: 07/03/24 15:32 Freq: Status: Active Protocol: Document 07/04/24 12:37 [facility] (Rec: 07/04/24 12:44 [facility] [id number]) OT- Subjective Occupational Therapy Visit Type Type Treatment Note Visit Start Time 10:45 Visit Stop Time 11:13 Occupational Therapy Visit Comments Patient Comments Pt going home and able to go over caregiver training withhis . Patient/Caregiver Goals TO get better. OT Pain Assessment Pain When Pain Assessed At Rest Pain Present Pain Present Denied Pain M4 OT- IP ADL's Start: 07/03/24 15:32 Freq: Status: Active Protocol: Document 07/04/24 12:37 [facility] (Rec: 07/04/24 12:44 [facility] [id number]) OT ADL-Dressing Comments OT Dressing Comments Educated pt'w to either asisst with balance or clothing management needs especially when pt is tired. OT ADL-Toileting Comments OT Toileting Comments Pt to take a urinal home. Pt' s able to assist pt in and out of the bathroom with the gait belt with good safety . Pt tends to lean to the left when tired and needign cues to stifffen his LLE from buckling. OT ADL-Bathing Comments OT Bathing Comments Pt will benefit from a shower chair, HHPS, and benefit from assist. M5 OT- IP IADL's Start: 07/03/24 15:32 Freq: Status: Active Protocol: Document 07/03/24 15:32 [facility] (Rec: 07/03/24 15:54 [facility] [id number]) OT-Instrumental Activities of Daily Living Deficits IADL Deficits Identified Deficits Home Safety Awareness Awareness of Need for Assistance at Home Good Awareness Ability to Problem Solve Emergency Able to Problem Solve Situations Home Safety Comments Pt has good awareness for assist at this and will benefit from supervision and assist for IADL needs. Money Management Money Management Comments Best to have at least supervision. Meal Preparation Meal Preparation Comments Pt will benefit from assist. Ophthalmic Assistant Ophthalmic Assistant Comments Pt will benefit from assist. Driving Driving Concerns Identified Regarding Safety Driving Comments Pt realizes that he will not drive at this time. M6 OT- IP Functional Cognition Start: 07/03/24 15:32 Freq: Status: Active Protocol: Document 07/03/24 15:32 [facility] (Rec: 07/03/24 15:54 [facility] [id number]) Cognitive Factors Limiting Selfcare Function Cognitive Ability Level of Alertness Alert Patient Orientation Name,Age,Birthday,Month,Date, Year,Day of Week,Place, Situation Attention Span Ability Capable of Focused Attention, Capable of Sustained Attention Cognitive Comments Cognitive Assessment Comments Pt able to follow directions for ADL and mobility needs. To assess higher level cognitive needs when pt's vision clears more. OT- Vision and Hearing OT- Hearing Assessment OT- Hearing Assessment WFL OT- Vision Assessment Visual Acuity WFL Visual Attentiveness WFL Occular Pursuits Impaired Horizontal Visual Convergence WFL Visual Reese WFL Diplopia Present Vision Assessment Comments Slight lag with left eye for occular pursuits. Able to tape the left lateral side of his glasses to try to get the pt to use the left eye more to focus medially. Pt states tape appears to help some. M7 OT- IP Mobility and Balance Start: 07/03/24 15:32 Freq: Status: Active Protocol: Document 07/04/24 12:37 [facility] (Rec: 07/04/24 12:44 [facility] [id number]) OT-Transfer Assessment Sit to and From Stand Sit to and from Stand Minimal Assistance Transfers Transfer Ability Moderate Assistance Technique Transfer Destination Bed,Chair,Toilet Devices Transfer Assistive Devices Gait Belt,Front Wheeled Walker Comments Mobility Comments ABle to train his to assist with gait belt and mobility needs and how to assist for ADL needs. OT- Balance Assessment Sitting Balance and Reactions Static Sitting Balance Ability Normal Dynamic Sitting Balance Ability Good Standing Balance and Reactions Static Standing Balance Ability Fair Dynamic Standing Balance Ability Poor M8 OT- IP Objective Assessments Start: 07/03/24 15:32 Freq: Status: Active Protocol: Document 07/03/24 15:32 [facility] (Rec: 07/03/24 15:54 [facility] [id number]) OT Gross Range of Motion Upper Extremity Range of Motion Assessment Within Functional Limits OT Strength Upper Extremity Strength Assessment Within Functional Limits Comments Strength Comments WFL but LUE slightly weaker than RUE. OT- Coordination Assessment Upper Extremity Finger to Nose Test Left UE Impaired Finger Tapping Test Left UE Impaired Comments Coordination Comments Increased time and slightly off for left hand. Right hand 29 seconds and Left hand 37 seconds for 9 hole peg test which is under 10th percentile fro his age R>>L. Pt is mildly ataxic for left hand movements. Pt however able to tie his shoes while seated with no issues. OT Sensation Assessment Comments Summary Comments Intact for light touch. Pt states right arm decreased for hot/cold at this time. Edema Edema Comments Left hand slightly swollen. M9 OT- IP Assessment and Plan Start: 07/03/24 15:32 Freq: Status: Active Protocol: Document 07/04/24 12:37 [facility] (Rec: 07/04/24 12:44 [facility] [id number]) OT Summary Assessment and Plan Potential Rehabilitation Potential Excellent Analytic Complexity at Evaluation Moderate Summary OT Impairments Balance,Coordination,Sensation ,Functional Mobility,Grooming, Dressing,Toileting,Bathing, Toilet Transfers,Shower Transfers,Activity Tolerance Progress Towards Goals Progressing Toward Goals Assessment Summary Pt improving but since not having insurance will not be able to go to acute inpt rehab . At this time, pt going home with his . Pt's able to get ADL equipment needs. Goals Dressing Goal Independent Toileting Goal Independent Bathing Goal Independent Toilet Transfer Goal Independent Shower Transfer Goal Independent Days to Meet Goals 25 Frequency of Treatment Other frequency 5x/week Treatment Plan OT Treatment Plan ADL Training,Functional Cognition Training,Functional Mobility,Vision Retraining, Patient/Family Education, Discharge Planning Discharge Recommendations OT Discharge Recommendations Acute Rehab Other Discharge Recommendations Pt states has no insurance and therefore looking to go home with family to assist. Home Equipment Needs BSC, WC, FWW, shower chair, HHSP, ramp? Transportation Needs at Discharge Private Vehicle
--- NOTE | 2024-07-04 13:11 | PC.NURSE ---
Pt discharged home at 1310, escorted off floor in wheelchair accompanied by spouse and hospital staff. IV removed, tele d/c'd, discharge teaching provided including new medications, importance of follow up appointments and worsening symptoms. Questions answered. Patient left the floor with all belongings.
== END 2024-07-04 13:13 | disposition home or self-care (01) | DRG 66 ==
LOC: ED 13:02 → AC 17:05
PROVIDERS: Admitting Provider Hospitalist; Emergency Provider Emergency Medicine; Referring Provider Emergency Medicine; Visit Provider Hospitalist
DX: I63.9 Cerebral infarction, unspecified (principal); I10 Essential (primary) hypertension; R29.810 Facial weakness; R20.0 Anesthesia of skin; R42 Dizziness and giddiness; H53.2 Diplopia; R47.02 Dysphasia; R47.1 Dysarthria and anarthria; G25.89 Other specified extrapyramidal and movement disorders; R29.702 NIHSS score 2; R29.703 NIHSS score 3
CPT/HCPCS: 36415; 70450; 70496; 70498; 70551; 80048; 80053; 82550; 82607; 82962; 83690; 84484; 85025; 92526; 92610; 93005; 96361; 96374; 97162; 97166; 97530; 97535; 99285; J1644; J2405; J3420; Q9967